=== PATIENT | female | born 1970 | race Caucasian/White ===

== ENCOUNTER → 2016-09-12 | Outpatient (CLI) | payer BC ==
--- NOTE | 2016-09-12 10:36 | DIAGNOSTIC IMAGING REPORT ---
ADDENDUM Three-dimensional dimensions were requested by the referring physician 1. Right ovary: 3.9 x 2.4 x 2.3 cm. 2. Left ovary: 3.1 x 1.8 x 2.5 cm. 3. Uterus: 7.1 x 3.8 x 4.2 cm. Electronically signed by: Adonay Flannery M.D. 09/15/2016 10:56 AM Dictated Date/Time: 09/15/2016 10:55 AM ORIGINAL REPORT EXAMINATION: PELVIC ULTRASOUND CLINICAL HISTORY: N92.0 PAIN COMPARISON STUDY: None FINDINGS: The uterus measured 7.1 cm. The endometrial stripe measured 7 mm. The right ovary measured 3.9 cm with normal vascular flow. The left ovary measured 3.1 cm with normal vascular flow. There is no ultrasonographic evidence of ovarian torsion. It should be noted that ovarian torsion can be present with normal Doppler ultrasonographic findings. There was no evidence of pathologic free pelvic fluid. IMPRESSION: Negative study Electronically signed by: Adonay Flannery M.D. 09/12/2016 10:35 AM Dictated Date/Time: 09/12/2016 10:34 AM
--- NOTE | 2016-09-12 10:47 | DIAGNOSTIC IMAGING REPORT ---
ABDOMINAL ULTRASOUND COMPLETE HISTORY: Pain R10.11. COMPARISON: None. FINDINGS: Pancreas: The pancreas demonstrates a normal echotexture. Liver: Unremarkable. Gallbladder: Surgically removed CBD: 5 mm Kidneys: No hydronephrosis. Spleen: Normal in size. Aorta: Normal in caliber. IVC: Patent. IMPRESSION: Negative study status post cholecystectomy Electronically signed by: Adonay Flannery M.D. 09/12/2016 10:45 AM Dictated Date/Time: 09/12/2016 10:43 AM
== END | disposition home or self-care (01) ==
LOC: C.ULTR 09:31
PROVIDERS: ATTEND Obstetrics & Gynecology
DX: R10.11 Right upper quadrant pain (principal); N92.0 Excessive and frequent menstruation with regular cycle

== ENCOUNTER → 2016-10-08 | Outpatient (CLI) | payer BC ==
--- NOTE | 2016-10-08 15:38 | MAMMOGRAPHY REPORT ---
BILATERAL DIGITAL SCREENING MAMMOGRAM TOMOSYNTHESIS WITH CAD: 10/08/2016 CLINICAL HISTORY: Routine screening. TECHNIQUE: Breast tomosynthesis in addition to standard 2D mammography was performed. Current study was also evaluated with a Computer Aided Detection (CAD) system. COMPARISON: Comparison is made to exams dated: 08/29/2014 mammogram, 09/20/2014 mammogram, 09/20/2015 ma mmogram, and 10/05/2015 mammogram - [facility]. BREAST COMPOSITION: The tissue of both breasts is heterogeneously dense, which may obscure small mas ses. FINDINGS: No suspicious masses, calcifications, or areas of architectural distortion are noted in ei ther breast. There is increased density involving bilateral breasts compared to prior exams, which i s symmetric bilaterally and may be due to interval weight loss or differences in technical factors. IMPRESSION: ACR BI-RADS CATEGORY 2: BENIGN There is no mammographic evidence of malignancy. A 1 year screening mammogram is recommended. The pa tient will receive written notification of the results. Approximately 10% of breast cancers are not detected with mammography. A negative mammographic report should not delay biopsy if a clinically suggestive mass is present. Jane Ortiz M.D. ah/:10/08/2016 15:25:40 [employer] Machine Operator: Josh BURCIAGA(Ralf)([place]ric[place]), [facility] letter sent: Normal 1/2 BI-RADS Code: ACR BI-RADS Category 2: Benign
== END | disposition home or self-care (01) ==
LOC: C.MAMM 13:06
PROVIDERS: ATTEND Obstetrics & Gynecology
DX: Z12.31 Encounter for screening mammogram for malignant neoplasm of breast (principal)